=== PATIENT | male | born 1950 | race Caucasian/White ===

== ENCOUNTER 2018-07-27 18:40 | Emergency (ER) | payer OTHER ==
[2018-07-27 19:09] VITALS: BP 171/86
--- NOTE | 2018-07-27 20:11 | UC ---
General HPI - HPI Summary HPI Summary: pt presents to the for evaluation of his chronic hiccoughs. he states that he was diagnosed with pneumonia. he has been taking levoquin for his pneumonia. he felt like he was getting better but his hiccoughs never went away. now he states that he feels like he cannot breath on occasion. he also feels like his tongue is getting stuck in the back of his throat. he denies any fever or chills. he states that today he started to cough up a little blood. 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 Negative: Agitation, Abdominal Pain, Anticoagulation Therapy, Back Pain, Confusion, Chest Pain, Dizziness, Diarrhea, Dysuria, Diaphoresis, Edema, Fever, Nausea, Palpitations, Syncope, Vomiting, Wheezing, Weakness Related Hx: Recent Illness - Allergy/Home Medications Allergies/Adverse Reactions: Allergies Allergy/AdvReac Type Severity Reaction Status Date / Time MS Erythromycin Allergy Hives Verified 07/27/18 18:54 [Erythromycin] MS Penicillins [Penicillins] Allergy Hives Verified 07/27/18 18:54 MS Sulfa Antibiotics Allergy Hives Verified 07/27/18 18:54 [Sulfa Antibiotics] Home Medications: Home Medications Levofloxacin TAB* [Levaquin TAB*] 750 mg PO DAILY 07/27/18 [History Confirmed ] chlorproMAZINE TAB* [Thorazine TAB*] 10 mg PO Q4H PRN 07/27/18 [History Confirmed 07/27/18] PMH/Surg Hx/FS Hx/Imm Hx Previously Healthy: Yes Respiratory History: COPD - Surgical History Surgical History: None - Social History Alcohol Use: None Substance Use Type: None Smoking Status (MU): Former Smoker When Did the Patient Quit Smoking/Using Tobacco: 1988 Review of Systems Constitutional: Negative Skin: Negative Eyes: Negative ENT: Negative Respiratory: Shortness Of Breath, Cough, Other - hiccoughs Gastrointestinal: Negative Motor: Negative Neurovascular: Negative Musculoskeletal: Negative Neurological: Negative All Other Systems Reviewed And Are Negative: No Physical Exam Triage Information Reviewed: Yes Appearance: No Pain Distress, Well-Nourished Vital Signs: Initial Vital Signs Temp 97.9 F 07/27/18 18:59 Pulse 67 07/27/18 18:59 Resp 20 07/27/18 18:59 BP 171/86 07/27/18 18:59 Pulse Ox 98 07/27/18 18:59 Vital Signs Reviewed: Yes Eye Exam: Normal ENT Exam: Normal Neck exam: Normal Respiratory: Positive: Wheezing - mild, sporadic intermittent Cardiovascular Exam: Normal Cardiovascular: Positive: RRR, No Murmur, Pulses Normal Abdomen Description: Positive: Nontender, Soft Bowel Sounds: Positive: Present Musculoskeletal Exam: Normal Musculoskeletal: Positive: Strength Intact Neurological Exam: Normal Neurological: Positive: Alert Psychological Exam: Normal Skin Exam: Normal Course/Dx - Course Course Of Treatment: pt presents for evaluation of his 8 days hx of hiccoughs. he has been on abx for this. he has been having shortness of breath and he feels like he is choking. I am concerned as to the etiology of his phrenic nerve irritation. I discussed with the patient the fact that he should have a ct of his chest to r/o a mass. pt and chose to go to [facility]. I called the MD on shift. He is aware of the patient. - Differential Dx - Multi-Symptom Provider Diagnoses: hiccoughs Discharge - Sign-Out/Discharge Documenting (check all that apply): Patient Departure All imaging exams completed and their final reports reviewed: No Studies - Discharge Plan Condition: Stable Disposition: HOME Patient Education Materials: Hiccups (ED) Referrals: Davi Cantu MD [Primary Care Provider] - Additional Instructions: after discharge, please go directly to [facility]. Discuss your symptoms. YOu will most likely get a CT of your chest. It is imperative that you follow up with your primary care physician. - Billing Disposition and Condition Condition: STABLE Disposition: Home
== END 2018-07-27 20:15 | disposition home or self-care (01) ==
LOC: UCCORT 18:40
DX: R06.6 Hiccough (principal); Z88.1 Allergy status to other antibiotic agents; Z88.0 Allergy status to penicillin; Z87.891 Personal history of nicotine dependence
CPT/HCPCS: 99202; G0463